=== PATIENT | male | born 1950 | race Caucasian/White ===

== ENCOUNTER 2017-10-04 09:29 | Emergency (ER) | payer MEDICARE | END 2017-10-04 10:51 | disposition home or self-care (01) | LOC: EDH 09:29 | DX: S82.302A Unspecified fracture of lower end of left tibia, initial encounter for closed fracture (principal); I10 Essential (primary) hypertension; E78.5 Hyperlipidemia, unspecified; Z87.891 Personal history of nicotine dependence; W10.8XXA Fall (on) (from) other stairs and steps, initial encounter; Y93.89 Activity, other specified; Y92.89 Other specified places as the place of occurrence of the external cause; Y99.8 Other external cause status | CPT/HCPCS: 29515; 73590; 73630 ==

== ENCOUNTER → 2020-04-10 | Outpatient (CLI) | payer MEDICARE | END | disposition home or self-care (01) | LOC: RAH 12:13 | PROVIDERS: ATTEND Family Medicine | DX: I70.0 Atherosclerosis of aorta (principal); M51.34 Other intervertebral disc degeneration, thoracic region; I49.9 Cardiac arrhythmia, unspecified | CPT/HCPCS: 71046 ==

== ENCOUNTER → 2020-04-18 | Outpatient (CLI) | payer MEDICARE | END | disposition home or self-care (01) | LOC: RAH 09:40 | PROVIDERS: ATTEND Family Medicine | DX: I49.9 Cardiac arrhythmia, unspecified (principal) | CPT/HCPCS: 93306; 93356 ==

== ENCOUNTER → 2023-02-28 | Outpatient (CLI) | payer MEDICARE, OTHER | END | disposition home or self-care (01) | LOC: RAH 09:04 | PROVIDERS: ATTEND Nurse Practitioner Adult Health | DX: D17.1 Benign lipomatous neoplasm of skin and subcutaneous tissue of trunk (principal) | CPT/HCPCS: 76604 ==